=== PATIENT | female | born 1975 | race Hispanic/Latino ===

== ENCOUNTER 2020-03-10 16:06 | Observation (INO) | payer BC ==
--- NOTE | 2020-03-10 17:31 | RAD REPORT ---
EXAM DESCRIPTION: RAD - Chest Pa And Lat (2 Views) - 03/10/2020 4:55 pm CLINICAL HISTORY: DYSPNEA Chest pain. FINDINGS: Mild interstitial lung opacities are present bilaterally, greater on the left. This likely indicates viral pneumonitis/bronchitis. The heart is normal in size. Cholecystectomy clips.
[2020-03-10 20:21] LABS: Basophils % 0.3 % (0-1.3); Hematocrit 35.3 % (36.0-45.0); Lymphocytes % 6.9 % (15.3-44.8); MPV 7.2 fL (7.6-11.3); RBC Red Blood Cell Count 4.79 M/uL (3.86-4.86)
[2020-03-10] MEDS ORDERED: NA CHLORIDE 0.9% 1,000 ML ONE (20:31)
[2020-03-10] MEDS ORDERED: dexAMETHasone 10 MG/ML VIAL ONE (20:31)
[2020-03-10 20:32] LABS: Protime INR 1.1
[2020-03-10 20:44] LABS: ALT/SGPT 114 U/L (12-78); AST/SGOT 103 U/L (15-37); Albumin 3.2 g/dL (3.4-5.0); Alkaline Phosphatase 189 U/L (45-117); BUN Blood Urea Nitrogen 8 mg/dL (7-18); Bicarbonate 27 mmol/L (21-32); Bilirubin Direct 0.2 mg/dL (0-0.2); Bilirubin Total 0.5 mg/dL (0.2-1.0); Ferritin 61.2 ng/mL (8-388); Glucose Level 126 mg/dL (74-106); Lipase 75 U/L (73-393); Potassium 3.3 mmol/L (3.5-5.1); Protein, Total 8.1 g/dL (6.4-8.2); Sodium Level 136 mmol/L (136-145); Troponin (Emerg Dept Use Only) < 0.02 ng/mL (0.0-0.045)
[2020-03-10 21:11] LABS: Blood Morphology Comment NOT SEEN (NOT SEEN); Platelet Estimate ADEQ
--- NOTE | 2020-03-10 22:07 | ER ---
Nurse's Notes [facility] Name: Carol Ann Diane Age: 44 yrs Sex: Female : 1975 Arrival Date: 03/10/2020 Time: 16:08 Bed 13 Private MD: Diagnosis: Dyspnea;Pulmonary embolism;Coronavirus infection, unspecified Presentation: 03/10 16:13 Chief complaint: Pt's reports SOB on exertion x 2-3 days ago. Pt's aa5 states "even talking makes her really short of breath and she even just walking from the bed to the restroom". Pt reports cough. Pt reports positive COVID-19 result on March 07. Pt also reports chest pain with cough. Coronavirus screen: cough unrelated to allergies, headache, sore throat, Client presents with at least one sign or symptom that may indicate coronavirus-19. Standard/surgical mask placed on the client. Provider contacted for isolation considerations. Ebola Screen: Patient negative for fever greater than or equal to 101.5 degrees Fahrenheit, and additional compatible Ebola Virus Disease symptoms. Initial Sepsis Screen: Does the patient meet any 2 criteria? No. Patient's initial sepsis screen is negative. Does the patient have a suspected source of infection? No. Patient's initial sepsis screen is negative. Risk Assessment: Do you want to hurt yourself or someone else? Patient reports no desire to harm self or others. Onset of symptoms was February 2020. 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 - Social history:: Smoking status: Patient denies any tobacco usage or history of. Screenin:15 Abuse screen: Denies threats or abuse. Denies injuries from another. Nutritional ca1 screening: No deficits noted. Tuberculosis screening: No symptoms or risk factors identified. Fall Risk None identified. Assessment: 19:15 General: Appears in no apparent distress. comfortable, Behavior is calm, cooperative, ca1 appropriate for age. Pain: Complains of pain in chest Pain currently is 7 out of 10 on a pain scale. Pain began this morning Is continuous. Neuro: Level of Consciousness is awake, alert, obeys commands, Oriented to person, place, time, situation. Cardiovascular: Heart tones S1 S2 present Capillary refill < 3 seconds Patient's skin is warm and dry. Rhythm is regular. Respiratory: Reports shortness of breath on exertion cough that is Airway is patent Respiratory effort is even, unlabored, Respiratory pattern is regular, symmetrical, Breath sounds are clear bilaterally. GI: Abdomen is round non-distended, Bowel sounds present X 4 quads. Abd is soft and non tender X 4 quads. : No signs and/or symptoms were reported regarding the genitourinary system. EENT: No signs and/or symptoms were reported regarding the EENT system. Derm: Skin is intact, is healthy with good turgor, Skin is pink, warm \\T\\ dry. Musculoskeletal: Circulation, motion, and sensation intact. Capillary refill < 3 seconds. 20:10 Reassessment: Patient appears in no apparent distress at this time. Patient and/or ca1 family updated on plan of care and expected duration. Pain level reassessed. Patient is alert, oriented x 3, equal unlabored respirations, skin warm/dry/pink. 21:00 Reassessment: Patient appears in no apparent distress at this time. Patient is alert, ca1 oriented x 3, equal unlabored respirations, skin warm/dry/pink. 22:00 Reassessment: Patient appears in no apparent distress at this time. Patient and/or ca1 family updated on plan of care and expected duration. Pain level reassessed. Patient is alert, oriented x 3, equal unlabored respirations, skin warm/dry/pink. 23:00 Reassessment: Patient appears in no apparent distress at this time. Patient is alert, rr5 oriented x 3, equal unlabored respirations, skin warm/dry/pink. 03/11 00:00 Reassessment: Patient appears in no apparent distress at this time. Patient is alert, rr5 oriented x 3, equal unlabored respirations, skin warm/dry/pink. admitted as ER hold. Vital Signs: 03/10 16:13 BP 128 / 86; Pulse 93; Resp 22 S; Temp 98.9(O); Pulse Ox 99% on R/A; Weight 98.88 kg aa5 (R); 19:15 BP 143 / 76; Pulse 90; Resp 29 S; Pulse Ox 92% on R/A; ca1 20:21 BP 136 / 83; Pulse 100; Resp 32 S; Pulse Ox 97% on R/A; ca1 21:36 BP 122 / 71; Pulse 98; Resp 31 S; Pulse Ox 95% on R/A; ca1 22:30 BP 125 / 72; Pulse 93; Resp 26; Temp 98; Pulse Ox 99% ; rr5 23:30 BP 135 / 79; Pulse 97; Resp 24; Pulse Ox 98% ; rr5 03/11 00:00 BP 124 / 62; Pulse 90; Resp 22; Pulse Ox 98% on R/A; rr5 ED Course: 03/10 16:08 Patient arrived in ED. ag5 16:13 Arm band placed on. aa5 16:15 Triage completed. aa5 16:34 [facility]enc[facility]C [facility]. kb 16:34 Flavio Meek MD is Attending Physician. kb 16:54 Chest Pa And Lat (2 Views) XRAY In Process Unspecified. EDMS 19:07 Carrie Starr, AYAD is Primary Nurse. ca1 19:15 Patient has correct armband on for positive identification. Bed in low position. Call ca1 light in reach. Side rails up X 1. Pulse ox on. NIBP on. Warm blanket given. 20:11 Inserted saline lock: 20 gauge in right antecubital area, using aseptic technique. dh4 Blood collected. 21:24 CT Chest For PE Angio In Process Unspecified. EDMS 22:05 Lenny Eng MD is Hospitalizing Provider. kb 22:08 Report given to AYAD Brooks. ca1 22:45 COVID swab sent to lab. rr5 03/11 00:00 No provider procedures requiring assistance completed. Patient admitted, IV remains in rr5 place. intact, No redness/swelling at site. Administered Medications: 03/10 20:15 Drug: NS 0.9% 1000 ml Route: IV; Rate: 1000 ml; Site: right antecubital; ca1 22:02 Follow up: Response: No adverse reaction; IV Status: Completed infusion; IV Intake: ca1 1000ml 20:19 Drug: Decadron - Dexamethasone 10 mg Route: IVP; Site: right antecubital; ca1 21:00 Follow up: Response: No adverse reaction ca1 22:21 Drug: Lovenox 1 mg/kg Route: Sub-Q; Site: right lower abdomen; rr5 23:20 Follow up: Response: No adverse reaction rr5 Intake: 22:02 IV: 1000ml; Total: 1000ml. ca1 Outcome: 22:05 Decision to Hospitalize by Provider. kb 03/11 00:00 Admitted to ER Hold. Please see [facility] for further documentation. rr5 Condition: stable Instructed on the need for admit. 10:27 Patient left the ED. ca1 Signatures: Dispatcher [employer] EDMS Claudia Ascencio, [employer]-C [employer]-Margaret Marquis, RN RN aa5 Todd Hoyt RN RN rr5 Carrie Starr RN RN ca1 Lynette Camarillo 5 Ashu Rust 4 Corrections: (The following items were deleted from the chart) 03/10 16:17 16:13 Chief complaint: Pt's reports SOB on exertion x 2-3 days ago. Pt's aa5 states "even talking makes her really short of breath and she even just walking from the bed to the restroom". Pt reports cough. Pt reports positive COVID-19 result on March 07. aa5 19:31 19:15 Pain: Denies pain. ca1 ca1 19:31 19:15 Respiratory: Reports shortness of breath on exertion Airway is patent Respiratory ca1 effort is even, unlabored, Respiratory pattern is regular, symmetrical, Breath sounds are clear bilaterally. ca1 21:37 19:15 BP 143 / 76; Pulse 90bpm; Resp 18bpm; Spontaneous; Pulse Ox 92% RA; ca1 ca1 21:37 20:21 BP 136 / 83; Pulse 100bpm; Resp 20bpm; Spontaneous; Pulse Ox 97% RA; ca1 ca1
--- NOTE | 2020-03-10 22:07 | EDPHYS ---
Physician Documentation [facility] Name: Carol Ann Diane Age: 44 yrs Sex: Female : 1975 Arrival Date: 03/10/2020 Time: 16:08 Bed 13 Private MD: ED Physician Flavio Meek HPI: 03/10 20:23 This 44 yrs old Female presents to ER via Wheelchair with complaints of kb Breathing Difficulty. 20:23 The patient has shortness of breath at rest, with light activity. Onset: The kb symptoms/episode began/occurred last week. Duration: The symptoms are continuous. The patient's shortness of breath is aggravated by coughing, exertion, light activity, talking. Associated signs and symptoms: Pertinent positives: non-productive cough, headache. Severity of symptoms: At their worst the symptoms were moderate in the emergency department the symptoms are unchanged. The patient has not experienced similar symptoms in the past. The patient has been recently seen by a physician:. Pt reports she started having covid symptoms on the . Tested positive and was given prescriptions for antibiotics and steroids. States she has been having more shortness of breath this week . 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 - Social history:: Smoking status: Patient denies any tobacco usage or history of. ROS: 20:23 ENT: Negative for injury, pain, and discharge, Neck: Negative for injury, pain, and kb swelling, Cardiovascular: Negative for chest pain, palpitations, and edema, Abdomen/GI: Negative for abdominal pain, nausea, vomiting, diarrhea, and constipation, MS/Extremity: Negative for injury and deformity, Skin: Negative for injury, rash, and discoloration. 20:23 Constitutional: Positive for body aches, malaise. 20:23 Respiratory: Positive for cough, dyspnea on exertion, shortness of breath. 20:23 Neuro: Positive for headache. Exam: 20:19 Constitutional: This is a well developed, well nourished patient who is awake, alert, kb and in no acute distress. Head/Face: Normocephalic, atraumatic. Chest/axilla: Normal chest wall appearance and motion. Nontender with no deformity. No lesions are appreciated. Cardiovascular: Regular rate and rhythm with a normal S1 and S2. No gallops, murmurs, or rubs. Normal PMI, no JVD. No pulse deficits. Respiratory: Lungs have equal breath sounds bilaterally, clear to auscultation and percussion. No rales, rhonchi or wheezes noted. No increased work of breathing, no retractions or nasal flaring. Abdomen/GI: Soft, non-tender, with normal bowel sounds. No distension or tympany. No guarding or rebound. No evidence of tenderness throughout. Back: No spinal tenderness. No costovertebral tenderness. Full range of motion. Skin: Warm, dry with normal turgor. Normal color with no rashes, no lesions, and no evidence of cellulitis. MS/ Extremity: Pulses equal, no cyanosis. Neurovascular intact. Full, normal range of motion. 20:31 ECG was reviewed by the Attending Physician. kb Vital Signs: 16:13 BP 128 / 86; Pulse 93; Resp 22 S; Temp 98.9(O); Pulse Ox 99% on R/A; Weight 98.88 kg aa5 (R); 19:15 BP 143 / 76; Pulse 90; Resp 29 S; Pulse Ox 92% on R/A; ca1 20:21 BP 136 / 83; Pulse 100; Resp 32 S; Pulse Ox 97% on R/A; ca1 21:36 BP 122 / 71; Pulse 98; Resp 31 S; Pulse Ox 95% on R/A; ca1 22:30 BP 125 / 72; Pulse 93; Resp 26; Temp 98; Pulse Ox 99% ; rr5 23:30 BP 135 / 79; Pulse 97; Resp 24; Pulse Ox 98% ; rr5 03/11 00:00 BP 124 / 62; Pulse 90; Resp 22; Pulse Ox 98% on R/A; rr5 MDM: 03/10 19:06 Patient medically screened. [facility] 20:19 Data reviewed: vital signs, nurses notes. Data interpreted: Pulse oximetry: on room air kb is 99 %. Interpretation: normal. 21:56 Counseling: I had a detailed discussion with the patient and/or guardian regarding: the kb historical points, exam findings, and any diagnostic results supporting the discharge/admit diagnosis, lab results, radiology results, the need for further work-up and treatment in the hospital. 22:05 Physician consultation: David LAWRENCE was contacted at 22:05, regarding admission, kb to the telemetry unit. patient's condition, and will see patient in ED, shortly. 03/10 19:31 Order name: BMP; Complete Time: 20:51 kb 03/10 19:31 Order name: C-Reactive Protein; Complete Time: 20:51 kb 03/10 19:31 Order name: CBC with Diff; Complete Time: 21:19 kb 03/10 19:31 Order name: Ferritin; Complete Time: 20:51 kb 03/10 19:31 Order name: Lactate; Complete Time: 20:34 kb 03/10 19:31 Order name: LFT's; Complete Time: 20:51 kb 03/10 19:31 Order name: Lipase; Complete Time: 20:51 kb 03/10 19:31 Order name: Procalcitonin; Complete Time: 21:02 kb 03/10 19:31 Order name: PT-INR; Complete Time: 20:51 kb 03/10 19:31 Order name: Ptt, Activated; Complete Time: 20:51 kb 03/10 19:31 Order name: Troponin (emerg Dept Use Only); Complete Time: 20:51 kb 03/10 20:27 Order name: Manual Differential; Complete Time: 21:19 EDMS 03/10 22:04 Order name: COVID-19 kb 03/10 22:24 Order name: Blood Culture Adult (2) la1 03/10 16:31 Order name: Chest Pa And Lat (2 Views) XRAY; Complete Time: 17:34 kb 03/10 19:31 Order name: EKG; Complete Time: 19:32 kb 03/10 19:31 Order name: Cardiac monitoring; Complete Time: 20:10 kb 03/10 19:31 Order name: Droplet/Contact Precautions; Complete Time: 19:49 kb 03/10 19:31 Order name: EKG - Nurse/Tech; Complete Time: 20:21 kb 03/10 19:31 Order name: IV Start; Complete Time: 20:10 kb 03/10 19:31 Order name: CT Chest For PE Angio kb 03/11 00:25 Order name: SARS-COV-2 RT PCR EDMS 03/11 04:43 Order name: CBC with Automated Diff EDMS 03/11 05:04 Order name: Basic Metabolic Panel EDMS 03/11 05:04 Order name: C-Reactive Protein EDMS 03/11 05:04 Order name: Magnesium EDMS 03/11 05:04 Order name: Ferritin EDMS 03/10 19:31 Order name: Labs collected and sent; Complete Time: 20:10 kb 03/10 19:31 Order name: O2 Per Protocol; Complete Time: 19:49 kb 03/10 19:31 Order name: O2 Sat Monitoring; Complete Time: 19:49 kb EC: Rate is 103 beats/min. Rhythm is regular. QRS [place] is Normal. SC interval is normal at kb 128 msec. QRS interval is normal at 80 msec. QT interval is normal at 336 msec. Administered Medications: 20:15 Drug: NS 0.9% 1000 ml Route: IV; Rate: 1000 ml; Site: right antecubital; ca1 22:02 Follow up: Response: No adverse reaction; IV Status: Completed infusion; IV Intake: ca1 1000ml 20:19 Drug: Decadron - Dexamethasone 10 mg Route: IVP; Site: right antecubital; ca1 21:00 Follow up: Response: No adverse reaction ca1 22:21 Drug: Lovenox 1 mg/kg Route: Sub-Q; Site: right lower abdomen; rr5 23:20 Follow up: Response: No adverse reaction rr5 Disposition: 03/11 17:04 Co-signature as Attending Physician, Flavio Meek MD I agree with the assessment and kris plan of care. Disposition: 03/10/20 22:05 Hospitalization ordered by Lenny Eng for Observation. Preliminary diagnosis are Dyspnea, Pulmonary embolism, Coronavirus infection, unspecified. - Bed requested for [facility] ER HOLD. - Status is Observation. ca1 - Condition is Stable. - Problem is new. - Symptoms are unchanged. Signatures: Dispatcher [employer] EDMS Claudia Ascencio FNP-C FNP-Ckb Markwardt, Deana, RN RN dm5 Flavio Meek MD MD cha Calderon, Audri RN RN aa5 Todd Hoyt RN RN rr5 Carrie Starr RN RN ca1 Corrections: (The following items were deleted from the chart) 03/10 20:32 20:23 Associated signs and symptoms: Pertinent positives: non-productive cough, kb kb 23:19 22:05 Hospitalization Ordered by Lenny Eng MD for Observation. Preliminary dm5 diagnosis is Dyspnea; Pulmonary embolism; Coronavirus infection, unspecified. Bed requested for Telemetry/MedSurg (observation). Status is Observation. Condition is Stable. Problem is new. Symptoms are unchanged. kb 03/11 10:27 03/10 23:19 03/10/2020 22:05 Hospitalization Ordered by Lenny Eng MD for ca1 Observation. Preliminary diagnosis is Dyspnea; Pulmonary embolism; Coronavirus infection, unspecified. Bed requested for [facility] ER HOLD. Status is Observation. Condition is Stable. Problem is new. Symptoms are unchanged. dm5
[2020-03-10] MEDS ORDERED: ENOXAPARIN 100 MG/ML SYR SQ ONE (22:24)
--- NOTE | 2020-03-11 00:08 | P.HP ---
Certification for Inpatient Patient admitted to: Observation With expected LOS: <2 Midnights Patient will require the following post-hospital care: None Practitioner: I am a practitioner with admitting privileges, knowledge of patient current condition, hospital course, and medical plan of care. Services: Services provided to patient in accordance with Admission requirements found in Title 42 Section 412.3 of the Code of Federal Regulations Patient History Date of Service: 03/11/20 Reason for admission: Pulmonary embolism, COVID History of Present Illness: 44 year old female with history of hypertension presents the emergency department for COVID, shortness of breath. Patient reports that she was diagnosed with carlson virus on the 06 March. Patient reports that she has had increasing shortness of breath since then. Patient was evaluated in the emergency department, found to have elevated C-reactive protein 175 elevated AST, ALT. Hypokalemia to 3.3, mildly elevated white blood cell count 13.9 with some left shift but pro calcitonin negative. CT PE protocol performed shows probable left-sided pulmonary embolism. Patient saturating around 94-95% on room air but states she is not feeling well. ED provider wishes to admit patient for further evaluation and management under observation. When I saw the patient in the ER she was awake, alert, oriented x3. Patient in no respiratory distress, saturations are 95%. 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 moist/pink Neck: Supple, 2+ carotid pulse no bruit, No LAD Respiratory: Normal air movement, Diminished (Bilaterally) Cardiovascular: Regular rate/rhythm, Normal S1 S2 Capillary refill: <2 Seconds Gastrointestinal: Normal bowel sounds, No tenderness Musculoskeletal: No tenderness Integumentary: No rashes Neurological: Normal gait, Normal speech, Normal strength at 5/5 x4 extr, Normal tone, Normal affect Lymphatics: No axilla or inguinal lymphadenopathy - Studies Laboratory Data (last 24 hrs) 12/26/20 20:07: PT 13.0 H, INR 1.10, APTT 25.4 03/10/20 20:07: WBC 13.9 H, Hgb 11.5 L, Hct 35.3 L, Plt Count 382 03/10/20 20:07: Sodium 136, Potassium 3.3 L, BUN 8, Creatinine 0.71, Glucose 126 H, Total Bilirubin 0.5, AST 103 H, ALT 114 H, Alkaline Phosphatase 189 H, Lipase 75 Assessment and Plan - Plan Assessment Acute pulmonary embolism COVID-19 Hypertension Plan Acute pulmonary embolism: Full-dose anticoagulation with Lovenox 1 milligram/kilogram, monitor on telemetry. Daily room air saturations, room air saturations for home oxygen. Patient will see pulmonology while in the hospi [facility]. COVID-19: IV steroids, oral supplements. Room air saturations daily and for home oxygen. Patient will see pulmonology while in the hospital. Hypertension: Obtain and continue home medications. Discharge Plan: Home Plan to discharge in: 24 Hours - Advance Directives Does patient have a Living Will: No Does patient have a Durable POA for Healthcare: No - Code Status/Comfort Care Code Status Assessed: Yes Critical Care: No Time Spent Managing Pts Care (In Minutes): 55
[2020-03-11] MEDS ORDERED: ACETAMINOPHEN 500 MG TAB PO PRN (00:39)
[2020-03-11] MEDS ORDERED: ONDANSETRON 4 MG/2 ML VIAL IV PRN (00:39)
[2020-03-11] MEDS ORDERED: MELATONIN 5 MG TABLET PO PRN (00:39)
[2020-03-11] MEDS ORDERED: HYDROCODONE/APAP 5/325 MG TAB PO PRN (00:39)
[2020-03-11] MEDS: METHYLPREDNISOLONE 40 MG INJ IV SCH ×2 (01:00→09:00)
[2020-03-11] MEDS ORDERED: METHYLPREDNISOLONE 40 MG INJ ONE ×2 (01:26→10:05)
[2020-03-11] MEDS ORDERED: HYDROCODONE/APAP 5/325 MG TAB ONE (01:26)
[2020-03-11 03:46] VITALS: BMI 42.5
[2020-03-11 04:08] VITALS: TEMP 97.5
[2020-03-11 04:38] LABS: Basophils % 0.1 % (0-1.3); Hematocrit 34.2 % (36.0-45.0); Lymphocytes % 8.2 % (15.3-44.8); MPV 7.8 fL (7.6-11.3); RBC Red Blood Cell Count 4.56 M/uL (3.86-4.86)
[2020-03-11 05:03] LABS: BUN Blood Urea Nitrogen 8 mg/dL (7-18); Bicarbonate 25 mmol/L (21-32); Ferritin 78.5 ng/mL (8-388); Glucose Level 155 mg/dL (74-106); Magnesium 2.6 mg/dL (1.8-2.4); Potassium 3.7 mmol/L (3.5-5.1); Sodium Level 139 mmol/L (136-145)
[2020-03-11] MEDS ORDERED: POTASSIUM CL SA 10 MEQ TAB PO ONE ×2 (05:34→05:53)
[2020-03-11 08:41] VITALS: BP 121/88
[2020-03-11] MEDS ORDERED: ENOXAPARIN 100 MG/ML SYR SQ SCH (09:00)
[2020-03-11] MEDS ORDERED: VITAMIN D 1000 UNIT TAB PO SCH (09:00)
[2020-03-11] MEDS ORDERED: ASCORBIC ACID 500 MG TABLET PO SCH (09:00)
[2020-03-11] MEDS ORDERED: ZINC SULFATE 220 MG CAP PO SCH (09:00)
--- NOTE | 2020-03-11 09:46 | P.DS ---
Admission Date: 03/10/20 Discharge Date: 03/11/20 Disposition: ROUTINE DISCHARGE Discharge Condition: GOOD Reason for Admission: Pulmonary embolism, COVID Brief History of Present Illness: Patient is 44 years of age diagnosed with carlson virus pneumonia about a week ago presented with shortness of breath was found to have a small pulmonary embolism in the left lower lobe bilateral interstitial changes compatible with carlson virus pneumonia Hospital Course: Patient did well was little apprehensive oxygenation satisfactory off O2 patient had a small pulmonary embolus was discharge in satisfactory condition/on Eliquis continue with prednisone patient was alert oriented S shows some crackles cardiovascular system os sounds normal abdomen soft labs reviewed CRP elevated Vital Signs/Physical Exam: Temp Pulse Resp BP Pulse Ox 97.5 F 74 31 H 121/88 93 03/11/20 04:00 03/11/20 08:00 03/11/20 08:00 03/11/20 08:00 03/11/20 08:00 Laboratory Data at Discharge: WBC 12.1 K/uL (4.3-10.9) H 03/11/20 03:48 Hgb 10.9 g/dL (12.0-15.0) L 03/11/20 03:48 Hct 34.2 % (36.0-45.0) L 03/11/20 03:48 Plt Count 379 K/uL (152-406) 03/11/20 03:48 PT 13.0 SECONDS (9.5-12.5) H 03/10/20 20:07 INR 1.10 03/10/20 20:07 APTT 25.4 SECONDS (24.3-36.9) 03/10/20 20:07 Sodium 139 mmol/L (136-145) 03/11/20 03:48 Potassium 3.7 mmol/L (3.5-5.1) 03/11/20 03:48 BUN 8 mg/dL (7-18) 03/11/20 03:48 Creatinine 0.57 mg/dL (0.55-1.3) 03/11/20 03:48 Glucose 155 mg/dL (74-106) H 03/11/20 03:48 Magnesium 2.6 mg/dL (1.8-2.4) H 03/11/20 03:48 Total Bilirubin 0.5 mg/dL (0.2-1.0) 03/10/20 20:07 AST 103 U/L (15-37) H 03/10/20 20:07 ALT 114 U/L (12-78) H 03/10/20 20:07 Alkaline Phosphatase 189 U/L (45-117) H 03/10/20 20:07 Lipase 75 U/L (73-393) 03/10/20 20:07 Home Medications: Apixaban [Eliquis] 5 mg PO BID #60 tablet 03/11/20 predniSONE [Deltasone*] 10 mg PO BID #20 tab 03/11/20 New Medications: predniSONE [Deltasone*] 10 mg PO BID #20 tab Apixaban [Eliquis] 5 mg PO BID #60 tablet Followup: Manuel Rivera MD [Primary Care Provider] -
[2020-03-11] MEDS ORDERED: ENOXAPARIN 100 MG/ML SYR SQ ONE (10:06)
[2020-03-11 10:38] VITALS: O2SAT 98
--- NOTE | 2020-03-12 09:59 | RAD REPORT ---
EXAM DESCRIPTION: CT - Chest For Pe Angio - 03/11/2020 4:42 am CLINICAL HISTORY: 44 years Female DYSPNEA COMPARISON: None. TECHNIQUE: Contiguous axial images were obtained through the chest during the infusion of IV contras t. Reformatted images obtained. MIP reformatted images obtained. This exam was performed according to our department optimization program which includes automated exp osure control, adjustment of the mA and/or kv according to patient size and/or use of iterative recon struction technique. FINDINGS: 5 mm Calcified right lung nodule versus retained foreign body is present at the anterior r ight lung base. There is a probable filling defect in a branch of the pulmonary artery supplying the left lateral delilah g. See series 501 image 34 and series 506 image 39. Motion creates significant artifact which limits accuracy. There are bilateral groundglass opacifications. These are most pronounced peripherally. No pneumothorax is seen. Heart size is normal. No pleural effusions. No lymphadenopathy. No PE is see n. No evidence of aortic aneurysm. No other significant abnormality. IMPRESSION: Probable left pulmonary embolus. Commonly reported imaging features of viral pneumonia are present. Other processes such as influenza pneumonia and organizing pneumonia, as can be seen with drug toxicity and connective tissue disease, can cause a similar imaging pattern. (Reference:https://pubs.rsna.org/doi/full/10.1148/ryct.844096199 2) Probable calcified granuloma. Retained foreign body is not excluded. No other acute abnormality. Electronically signed by: Carrillo Justin 03/10/2020 9:51 PM FILL TECHNICIAN Due to temporary technical issues with the PACS/Fluency reporting system, reports are being signed by the in house radiologists without review as a courtesy to insure prompt reporting. The interpreting radiologist is fully responsible for the content of the report
== END 2020-03-11 10:27 | disposition home or self-care (01) ==
LOC: ER 16:06 → ERHOLD 22:42
PROVIDERS: ADMIT Internal Medicine Sleep Medicine; ATTEND Internal Medicine Sleep Medicine
DX: U07.1 COVID-19 (principal); I26.99 Other pulmonary embolism without acute cor pulmonale; J12.89 Other viral pneumonia; I10 Essential (primary) hypertension
CPT/HCPCS: 96361; 93005; 87040 ×2; 85025 ×2; 80048 ×2; 36415; 83735; 85610; 80076; 83605; 85730; 84484; 82728 ×2; 83690; 84145; 86140 ×2; 71275; 71046; 96372; 96374; 99285; U0003; Q9967; J1100; J1650 ×2; J7030; J2920 ×2